=== PATIENT | male | born 1975 | race Asian ===

== ENCOUNTER 2016-12-02 19:30 | Outpatient (CLI) | payer OTHER | END 2016-12-02 19:31 | disposition home or self-care (01) | DX: G47.33 Obstructive sleep apnea (adult) (pediatric) (principal); Z68.36 Body mass index [BMI] 36.0-36.9, adult ==

== ENCOUNTER 2016-12-23 13:04 | Outpatient (CLI) | payer OTHER | END 2016-12-23 13:05 | disposition home or self-care (01) | DX: G47.33 Obstructive sleep apnea (adult) (pediatric) (principal) ==

== ENCOUNTER 2016-12-31 19:26 | Outpatient (CLI) | payer OTHER | END 2016-12-31 19:27 | disposition home or self-care (01) | DX: Z53.9 Procedure and treatment not carried out, unspecified reason (principal) ==

== ENCOUNTER 2017-01-27 09:43 | Outpatient (CLI) | payer OTHER | END 2017-01-27 09:44 | disposition home or self-care (01) | DX: G47.33 Obstructive sleep apnea (adult) (pediatric) (principal) ==

== ENCOUNTER 2017-03-10 09:53 | Outpatient (CLI) | payer OTHER | END 2017-03-10 09:54 | disposition home or self-care (01) | DX: G47.33 Obstructive sleep apnea (adult) (pediatric) (principal) ==

== ENCOUNTER 2018-05-12 08:51 | Outpatient (CLI) | payer OTHER | END 2018-05-12 08:52 | disposition home or self-care (01) | LOC: SC 08:51 | PROVIDERS: ATTEND Internal Medicine Pulmonary Disease | DX: G47.33 Obstructive sleep apnea (adult) (pediatric) (principal) | CPT/HCPCS: 99212; 99213 ==